=== PATIENT | female | born 1950 | race Caucasian/White ===

== ENCOUNTER → 2018-09-27 | Outpatient (CLI) | payer OTHER ==
[~2018-09-27] VITALS: Ht 160 cm; Wt 71.7 kg
[~2018-09-27] MED LIST: ADVAIR HFA 230M12 GM INH; AMLODIPINE BESY10 MG PO; ASPIR 8181 MG PO; ASPIRIN325 PO; BONIVA150 MG PO; CARDIZEM CD240 MG PO; LASIX 20 MG TAB20 MG PO; LIPITOR 20 MG T20 M1 PO; MILLIPRED DP5 MG PO; NABUMETONE 750750 M1 PO; NEXIUM40 MG PO; NITRO-BID30 GM TD; PLAQUENIL200 MG PO; PROLIA60 MG/1 ML SUBQ; TRAZODONE HCL50 MG PO; UNICOMPLEX M TA1 TA1 PO; VENTOLIN HFA 1818 GM INH; VITAMIN D-32000 UNIT PO; VITAMIN D1000 UNI1 PO
--- NOTE | ~2018-09-27 | P ---
[facility] [place] [address] PROCEDURE REPORT Name: SILVIA LUO Room #: REG [facility]#: [id number] Admission: 09/27/18 ������������������ Attend Phys: Delano Candelario MD Discharge: ������������������ Date of : 52 Report #: [id number] THIS REPORT FOR: //name// CC: Delano Redd MD DATE OF SERVICE: 09/27/2018 BRIEF HISTORY: The patient is a 68-year-old woman who presents for average risk screening colonoscopy. PREOPERATIVE DIAGNOSIS: Average risk screening colonoscopy. POSTOPERATIVE DIAGNOSES: 1. Multiple colon polyps. 2. Diverticulosis coli. 3. Internal hemorrhoids. MEDICATIONS: Deep sedation with propofol per anesthesia. SPECIMENS: 1. Polyp from cecum. 2. Proximal ascending colon polyp. 3. Proximal transverse colon polyp. ESTIMATED BLOOD LOSS: 3 mL. PROCEDURE: Colonoscopy to cecum and terminal ileum with snare polypectomy, saline elevation of polyp and biopsy. FINDINGS: Prior to propofol sedation, procedure of colonoscopy was discussed with the patient as well as potential risks and its complications. She indicates she understands and desires to proceed. DESCRIPTION OF PROCEDURE: With the patient in left lateral decubitus position, digital examination was completed, which revealed no abnormalities. Subsequently, the Olympus video colonoscope was introduced in the rectum, advanced under direct vision to the cecum. Done with minimal difficulty. The cecum was identified by the ileocecal valve and the appendiceal orifice. I was able to visualize the distal segment of the terminal ileum, which was inspected and noted to be unremarkable. At that point, the scope was slowly withdrawn and careful circumferential views were obtained including retroflexing the scope in the ascending colon. Within the cecum, there was an irregular shaped flat polyp. It was about 15 mm in greatest length and about 7-8 mm in greatest width. It was elevated with saline and removed in a piecemeal fashion with cold [facility] [address] [place] [address] PROCEDURE REPORT Name: SILVIA LUO Room #: [facility]#: [id number] Admission: 09/27/18 ������������������ Attend Phys: Delano Candelario MD Discharge: ������������������ Date of : 52 Report #: [id number] snare, hot snare and biopsy forceps. A complete polypectomy was achieved. The scope was further withdrawn in the very proximal ascending colon, a diminutive polyp was seen and removed with biopsy forceps. As the scope was withdrawn, another diminutive polyp was seen and removed with biopsy forceps in the proximal transverse colon. As we withdrew the scope, no additional polypoid lesions were seen. In the left colon, in particular the sigmoid colon, there was moderate sigmoid diverticular disease and endoscopic evidence of diverticulitis. The scope was withdrawn in the rectum. Upon retroflexion, small hemorrhoids were seen. Scope was withdrawn. The patient tolerated the procedure well. CONDITION OF THE PATIENT UPON DISCHARGE: Following procedure, the patient was drowsy, aroused, conversant and will be discharged home when fully ambulatory. INSTRUCTIONS TO THE PATIENT AND FAMILY AT THE TIME OF DISCHARGE: The patient with multiple polyps including a flat polyp in cecum was removed in a piecemeal fashion. Since it was removed in piecemeal fashion, we will have her return in 2 years for followup colonoscopy. I would suggest high fiber diet for the diverticular disease and the hemorrhoids. She will return to the care of Dr. Amina Redd. Return to see me as needed. Last colonoscopy was 10 years ago. Withdrawal time from cecum was 15 minutes and 3 seconds. ��������������������������������������������� ���������������������������������������� By: ��������������������������������������������� [id number] Delano Candelario MD /nt
--- NOTE | 2018-09-28 16:06 | PATH ---
[facility] [place] [address] PATHOLOGY RPT PROCEDURE Name: VARSHA MÉNDEZ Room #: REG [facility] Mohan.#: [id number] ������������������ Admission: 09/27/18 ������������������ Date of : 52 Discharge: Report #: [id number] Path Case #: [id number] [facility] Accession Number: [id number] . 01 Material submitted: . PART A: CECAL POLYP PART B: PROXIMAL ASCENDING COLON POLYP PART C: PROXIMAL TRANSVERSE COLON POLYP . 01 Clinical history: . Screening Colon polyps, diverticulosis, hemorrhoids . 02 Diagnosis: A. Polyp, cecal polyp, endoscopic biopsy: - Inflamed tubular adenoma, multiple fragments. - Negative for high-grade dysplasia. . B. Polyp, proximal ascending colon polyp, endoscopic biopsy: - Tubular adenoma. - Negative for high-grade dysplasia. . C. Polyp, proximal transverse colon polyp, endoscopic biopsy: - Compatible with a minute hyperplastic polyp. - Negative for dysplasia. . (IUV:paramjit; 09/28/2018) MBR/09/28/2018 . 02 Electronically signed: . Sujey Andre MD, Pathologist NPI- [id number] . 01 Gross description: . A. The specimen is received in formalin, labeled "Varsha Méndez, cecal polyp" and consists of multiple fragments of sales tissue admixed with vegetative material measuring 2.0 x 0.8 x 0.3 cm in aggregate which are entirely submitted in A1. . B. The specimen is received in formalin, labeled "Varsha Méndez, proximal ascending colon polyp" and consists of 3 fragments of pink-sales tissue measuring between 0.2 x 0.1 cm and 0.4 x 0.3 x 0.2 cm. They are entirely submitted in B1. . C. The specimen is received in formalin, labeled "Varsha Méndez, proximal transverse colon polyp" and consists of a fragment of sales tissue measuring 0.4 x 0.2 x 0.1 cm which is entirely submitted in C1. [address] [address] PATHOLOGY RPT PROCEDURE Name: VARSHA MÉNDEZ ENDER Room #: REG [facility].#: [id number] ������������������ Admission: 09/27/18 ������������������ Date of : 52 Discharge: Report #: [id number] Path Case #: [id number] ([facility]; 09/27/2018) SYU/SYU . 02 Pathologist provided ICD-10: D12.0, D12.2, K63.5 . 02 CPT . 012615, 768053, 372366 Specimen Comment: A courtesy copy of this report has been sent to Specimen Comment: [phone], . Specimen Comment: Report sent to Specimen Comment: Report sent to / DR WILLSON Performed at: [address], [place] [id number] MD Abe Abernathy MD Phone: [phone] Performed at: [address] [id number] MD Sujey Andre MD Phone: [phone]
== END | disposition home or self-care (01) ==
LOC: GI 06:25
DX: Z12.11 Encounter for screening for malignant neoplasm of colon (principal); D12.0 Benign neoplasm of cecum; D12.2 Benign neoplasm of ascending colon; K63.5 Polyp of colon; K57.30 Diverticulosis of large intestine without perforation or abscess without bleeding; K64.8 Other hemorrhoids; K57.92 Diverticulitis of intestine, part unspecified, without perforation or abscess without bleeding; I10 Essential (primary) hypertension; E78.5 Hyperlipidemia, unspecified; K21.9 Gastro-esophageal reflux disease without esophagitis; K44.9 Diaphragmatic hernia without obstruction or gangrene; J44.9 Chronic obstructive pulmonary disease, unspecified; E03.9 Hypothyroidism, unspecified; Z87.891 Personal history of nicotine dependence; Z96.651 Presence of right artificial knee joint; Z79.82 Long term (current) use of aspirin; Z79.899 Other long term (current) drug therapy; Z98.890 Other specified postprocedural states
CPT/HCPCS: 62110; 62900

== ENCOUNTER → 2020-09-12 | Outpatient (CLI) | payer OTHER ==
[~2020-09-12] MED LIST changes: +ADVAIR 100-501 EACH INH; +ASA81BEC PO; +BISOPROLOL FUMAR5 MG PO; +ENTRESTO 24 MG1 EACH PO; +MYCOPHENOLATE500 MG PO; +SPIRONOLACTONE25 M1 PO
== END ==
LOC: LAB 09:32
PROVIDERS: ATTEND Internal Medicine Gastroenterology
DX: Z01.812 Encounter for preprocedural laboratory examination (principal); Z20.822 Contact with and (suspected) exposure to COVID-19

== ENCOUNTER → 2020-09-17 | Outpatient (CLI) | payer OTHER ==
[~2020-09-17] VITALS: Ht 160 cm; Wt 68.0 kg
--- NOTE | 2020-09-19 18:06 | PATH ---
[facility] [address] [place] [address] PATHOLOGY RPT PROCEDURE Name: VARSHA MÉNDEZ Room #: REG [facility] Marques.#: [id number] Admission: 09/17/20 Date of : 52 Discharge: Report #: [id number] Path Case #: [id number] [facility] Accession Number: [id number] . 01 Material submitted: . colon - BIOPSY SIGMOID COLON POLYP . 02 Diagnosis: Polyp, sigmoid colon polyp, endoscopic biopsy: - Inflamed hyperplastic polyp. - Negative for dysplasia. . (IUV:mml; 09/19/2020) [facility] 09/19/2020 1440 Local . 02 Electronically signed: . Sujey Andre MD, Pathologist NPI- [id number] . 01 Gross description: . The specimen is received in formalin, labeled "Varsha Méndez, biopsy sigmoid colon polyp". Received is a segment of pale sales tissue measuring 0.2 cm in maximum dimensions. The specimen is submitted entirely in cassette A1. (CAA; 09/18/2020) QAC/QAC 09/18/2020 1551 Local . 02 Pathologist provided ICD-10: K63.5 . 02 CPT . 299076 Specimen Comment: A courtesy copy of this report has been sent to [phone] Specimen Comment: Report sent to Performed at: [address], [place] [id number] MD Isidoro Melton MD Phone: [phone] Performed at: [address] [id number] MD Sujey Andre MD Phone: [phone]
== END | disposition home or self-care (01) ==
LOC: GI 07:11
PROVIDERS: ATTEND Internal Medicine Gastroenterology
DX: Z12.11 Encounter for screening for malignant neoplasm of colon (principal); Z86.010 Personal history of colon polyps; K51.40 Inflammatory polyps of colon without complications; K57.30 Diverticulosis of large intestine without perforation or abscess without bleeding; K64.8 Other hemorrhoids; I10 Essential (primary) hypertension; E78.00 Pure hypercholesterolemia, unspecified; J43.9 Emphysema, unspecified; Z87.891 Personal history of nicotine dependence; Z98.890 Other specified postprocedural states; Z79.899 Other long term (current) drug therapy; Z90.710 Acquired absence of both cervix and uterus; Z96.651 Presence of right artificial knee joint; Z96.611 Presence of right artificial shoulder joint
CPT/HCPCS: 62110; 62900